=== PATIENT | female | born 1955 | race Two or more races ===

== ENCOUNTER 2024-03-19 08:30 | Outpatient (AMB) | payer OTHER, SELFPAY ==
--- NOTE | 2024-03-19 08:55 | HO.SPINEOV ---
Intake Visit Reasons: back pain Intake Note: Mrs. Calderón is here today c/o low back pain and Difficulty walking. Clinical Rehabilitation Coordinator Required: Yes Clinical Rehabilitation Coordinator Services: Clinical Rehabilitation Coordinator Present Assessment & Plan Assessment & Plan (1) Lumbar radiculopathy: Code(s): M54.16 - Radiculopathy, lumbar region Category: Medical Plan: This is a self-referred 68-year-old female who comes in today for evaluation of a left-sided low back pain that radiates down her left leg into her posterolateral thigh, posterolateral calf and into her foot. It started after a minor shoulder surgery that she had in 2018 or 2019. She did not have the pain right before the surgery but afterwards started to feel his pain down the leg. She was reassured that it would probably just go away maybe some kind of minor irritation of a nerve. Subsequent workups have not revealed any major findings. She was seen at [place] and reassured everything looked okay. She is very frustrated because she continues to have this pain daily, on and off throughout the day sitting, standing or lying down it is there. It feels like answer crawling on her leg, it is painful and uncomfortable. She has tried some [id number] pain medications which did not work very well. She is very reluctant to try medications. She did do physical therapy without any improvement. She is frustrated with her quality of life with this point. She has an MRI done at [facility] showing some mild changes in the lumbar spine on the report. She comes in today see us as we know her from our practice any thought she should have a 2nd opinion from us. PMH: High cholesterol, hypertension, headaches, lateral epicondylitis, sacroiliitis, osteoarthritis of the left hip Social hx: She does not smoke, drink use any recreational drugs Medications: Dulcolax, Zestril, Flexeril, Tylenol Allergies: Dogs, ragweed and seasonal allergies Physical exam: She is awake alert oriented no acute distress, she has positive straight leg raise on exam at about 30-40 degrees. GERONIMO testing is negative. She does have positive finger Katiuska test. Strength in reflexes in the lower extremities are normal. Imaging review: There is a lumbar MRI done at [facility] in July of 2023 showing what looks like normal alignment and good disc quality. There is some mild degeneration at T12-L1 but not causing any significant nerve compression. There is 1 thing that I see on the axial imaging at the L5-S1 level there appears to be a far lateral disc bulge/herniation which does abut the L5 nerve. He has not reported it on the sagittal sequences. It is not clear to me if the nerve is actually compressed orifice just running over a large osteophyte. Impression: 68-year-old female presents for evaluation of left L5 radiculopathy which started after shoulder surgery. It has been troubling her now for 4 or 5 years. It is there all the time, she has to get up change positions, constantly moving around, having a lot of trouble sleeping. She describes it as ants crawling on her legs, it is burning and very uncomfortable. She is frustrated that no one ever been able to give her an answer. She was seen at [place] by the neurosurgery team there and reassured that did not look like anything surgical. The only thing I can appreciate which was not mentioned on the report is at L5-S1 on the left in the far lateral component of the disc there does appear to be what could be a disc herniation or just a very large osteophyte disc complex which does run close to the L5 nerve after it exits the foramen. I am thinking she might respond to a left L5 TFESI not only as a diagnostic test but also to treat it symptomatically. I will refer her to Dr. Moulton for the injection and see her back once it is completed. I will review her imaging with Dr. Rasmussen as well to see if he has any other thoughts. Thank you for allowing us to care for your patient. The total time spent with this visit with this patient was 45 minutes reviewing history, physical exam, lumbar imaging review, and implementation of treatment plan or further diagnostic testing Fazal Rasmussen MD,PhD [facility] Orders: Referrals Physiatry Referral M54.16 - Radiculopathy, lumbar region Coding Level of Care Code New Pt Level 4 (45662) Diagnoses Lumbar radiculopathy M54.16
== END 2024-03-19 10:12 | disposition home or self-care (01) ==
PROVIDERS: PCP Internal Medicine; Visit Provider Physician Assistant
DX: M54.16 Radiculopathy, lumbar region (principal)
CPT/HCPCS: 99204

== ENCOUNTER → 2024-03-19 08:30 | Outpatient (BNVA) | payer OTHER, SELFPAY | PROVIDERS: PCP Internal Medicine; Visit Provider Physician Assistant | DX: M54.16 Radiculopathy, lumbar region (principal) | CPT/HCPCS: 99202 ==

== ENCOUNTER 2025-04-04 10:41 | Outpatient (AMB) | payer OTHER, SELFPAY ==
--- NOTE | 2025-04-04 10:43 | A.PHYSOV_ITS ---
Vital Signs 04/04/25 10:49 04/04/25 10:52 Height 4 ft 11 in 4 ft 11 in Weight 132 lb BMI 26.7 Intake Visit Reasons: 2M FUV Intake Note: Patient is a 69 year old female here for 2 month follow up. Geotechnicial Properties Technician Required: No Geotechnicial Properties Technician Services: Geotechnicial Properties Technician Offered & Declined Allergies dog dander (dogs) Allergy (Unknown, Verified 04/04/25 10:46) Unknown HPI Comments Details: Ms. Calderón is a 69-year-old female seen in evaluation today for lumbar radiculitis as well as sacroiliitis. Patient was referred to our department from Neurosurgery as we were considering left SI joint injection. She reports pain level today of 7/10 on the left side low back radiating into her left buttock and thigh. She also notes some fasciculations particularly at night. She underwent left L5 TFESI in May with no significant relief. Patient has been using tramadol lidocaine patches and Biofreeze. Patient has trialed gabapentin in the past but she would like to try it again. Patient was given oxycodone for breakthrough pain which has been helpful but made her slightly groggy. [facility] Surgical History H/O shoulder surgery (Unknown) H/O: hysterectomy (Unknown) History of cholecystectomy (Unknown) Social History Alcohol intake: current Alcohol intake frequency: does not drink Patient Tobacco Use Status: Never used Tobacco Current occupational status: retired Review of Systems Narrative Low back pain with radiculopathy. No incontinence, saddle anesthesia urinary retention. Physical Exam Exam Exam: Lumbar Spine: Examination of her lumbar spine, there is no visible swelling or deformity. She is tender to the left lower lumbar facets. She has full range of motion of her spine. She does have an increase in pain with facet loading. Special Tests: Lhermittes sign was negative Heel Toe walk is normal Left straight leg raise: Negative Right straight leg raise: Negative Special tests Demetra test is negative Ganslen's test is negative SI Joint compression test negative Randy test negative Piriformis stretch is negative Lower Extremities: Full range of motion bilateral lower extremities. No calf pain or edema. Neuro: Sensation: Intact to lower extremities bilaterally Strength L2 (Psoas): 5/5 on the left and 5/5 on the right. L3 (Quads): 5/5 on the left and 5/5 on the right. L4 (Ant tibialis): 5/5 on the left and 5/5 on the right. L5 (EHL) 5/5 on the left and 5/5 on the right. S1 (Gastroc): 5/5 on the left and 5/5 on the right. DTR L4: (Patellar) Left 1 Right 1 S1: (Achilles) Left 1 Right 1 Babinski Downgoing No pathologic clonus. No involuntary movement. Vital Signs: BMI result Body Mass Index 26.7 Assessment & Plan Assessment & Plan (1) Lumbar radiculopathy: Code(s): M54.16 - Radiculopathy, lumbar region Category: Medical (2) Spondylosis: Code(s): M47.9 - Spondylosis, unspecified Category: Medical Plan Ms. Calderón is a 69-year-old female seen in evaluation today for chronic low back pain with radiculopathy. She is experiencing fasciculations. Patient did not respond to epidural injection and she is not a surgical candidate. We are managing her pain with occasional oxycodone for breakthrough severe pain. She finds this medication helpful. I will prescribe the medication today. She will use the medication sparingly. She will not operate any heavy machinery while taking the medication. I did reviewed her mass pat and there are no red flags. I will prescribe gabapentin 100 mg at night. She may increase to 300 mg at 9/10 days as tolerated. She will contact our office for refill. Recommend follow-up in 2 months. We discussed the benefits of proper nutrition and exercise to maintain a healthy body weight to improve longevity and function. We also discussed the benefits of proper lifting techniques, core strengthening and proper posture. Thank you for allowing me to participate in the care of your patient. Medications: New oxycodone Partial Fill upon patient request. 5 mg PO Q6H PRN 28 caps 0RF pain M47.9 - Spondylosis, unspecified, M54.16 - Radiculopathy, lumbar region gabapentin 100 mg PO BEDTIME 30 caps 0RF M47.9 - Spondylosis, unspecified, M54.16 - Radiculopathy, lumbar region Coding Level of Care Code Tele Est Pt Level 4 ([id number]) Diagnoses Lumbar radiculopathy M54.16 Spondylosis M47.9
[2025-04-04 10:52] VITALS: BMI 26.7
--- OUTSIDE RECORDS SUMMARY | 2025-04-04 16:01 | XMS_ITS | Clinical Summary ---
Author Organization [facility] [address] [facility] Address [address] [place] [address] Phone Care Team Providers Care Director Housekeeping Name Role Phone Bryant Arenas MD Primary Care Provider [phone] Allergies No known active allergies Medications acetaminophen (TYLENOL 8 HOUR) 650 mg 8 hr tablet Take 1 tablet (650 mg total) by mouth every 8 (eight) hours if needed. 4 Active traMADoL (ULTRAM) 50 mg tabletIndication s:Chronic left-sided low back pain, unspecified whether sciatica present Take 1 tablet (50 mg total) by mouth every 6 (six) hours if needed for moderate pain. Max Daily Amount: 200 mg 30 tablet 5 Active lisinopriL (PRINIVIL,ZESTRI L) 5 mg tablet TAKE 1 TABLET BY MOUTH 1 TIME EACH DAY. 90 tablet 1 5 Active oxyCODONE (ROXICODONE) 5 mg immediate release tablet Take 1 tablet (5 mg total) by mouth if needed. 5 Active aspirin 81 mg EC tablet Take 1 tablet (81 mg total) by mouth 1 (one) time each day. 90 tablet 1 5 Active aspirin 81 mg EC tablet Take 1 tablet (81 mg total) by mouth. 6 03/29/20 25 Discontinu ed(Reorder ) Active Problems Problem Noted Date Diagnosed Date Chronic left-sided low back pain 02/10/2024 Overview (03/31/2024): Last Assessment & Plan: Patient describes left paraspinous lumbar back pain, left buttock pain that started a few days after having left shoulder surgery about 4 to 5 years ago. She states she cannot sit down too long, cannot sleep lying down, has to keep moving and walking around throughout the day. She feels tingling in both legs, states involves whole leg anterior and posterior, at times feels a heat sensation in the legs. She tried going to physical therapy years ago, but the back pain was too severe and she could not tolerate it. She is also tried seeing a chiropractor. She states in the past there was mention of hip replacement surgery, but never had follow-up. She tried gabapentin in the past, stopped it because she felt she was on too many medications and did not actually know what her problem was and did not want to take it without knowing a diagnosis. When she sits in the car she has to sit sideways . She does not specifically describe groin pain. When I looked through her records, there is a procedure note of her having a left SI joint injection 07/27/2021 at [facility], however she denies ever having any injections. Patient had x-rays lumbar spine 05/04/2023 that showed mild diffuse degenerative changes including multilevel osteophytes, some interval progression compared to prior films from 2019. She had lumbar spine MRI 08/12/2023 [facility] that showed T12-L1 central disc herniation without stenosis, otherwise lumbar spine MRI with minimal degenerative disc changes, no significant central or foraminal stenosis. I reviewed the MRI images in detail with the patient and her on the computer. Dr. Venegas reviewed images today as well. Ms. Calderón has severe chronic left lateral low back pain, sensitive to touch, left buttock pain radiating down the left lateral leg. She describes sensation of heat and tingling in the legs bilaterally also has tenderness over the left SI joint region. She does not have any findings on her lumbar MRI that would require surgical intervention. We talked about conservative treatment options, she does not want to try physical therapy again, we talked about trying aquatic PT in the pool to eliminate gravity with exercise, acupuncture, injections (possible SI joint injection). She is not interested in injections, but would try acupuncture, names provided. I ordered hip x-rays, she may need to follow-up with orthopedics. We talked about trying gabapentin again for the tingling in her legs, she will consider it. All questions answered. We used [facility] [employer] interpreters Marlon #[id number], Brad #[id number]. Assessment & Plan (01/08/2025 11:36 PM EDT): Pt was seen last year for left paraspinous lumbar back pain, left buttock pain that started a few days after having left shoulder surgery about 5 years ago. She had difficulty sitting too long, could not sleep lying down, had to keep moving and walking around throughout the day. Today she states her symptoms have not changed or improved at all since she was in last year. Since then she says she has tried acupuntcture, chirotx, had left L5 TFE 05/2024, none of which has helped her pain. She is taking Tramadol, Lidocaine patches, Biofreeze. Gabapentin did not help. She notes it is hard to bend over, can only sit about 5 min, has to sit leaning to the right, and tolerates minimal walking. She rates her back pain 8 or greater/10, Left posterior leg pain to outer/under foot 7-8/10. She has seen [facility], they did not recommend surgery. Her prior MRI L/S 08/15/23 [facility] showed minimal degenerative disc changes, no significant central or foraminal stenosis. We reviewed it again on this visit on the computer. She had L/S X-rays 06/11/24 that showed possible DISH, Diffuse lateral bridging osteophytes noted. Ms. Calderón has persistent LBP and left leg pain, it is severe and limiting her activities and sleep. We can get updated MRI L/S and see if there are any new findings like Modic changes/DDD or nerve root compression. She has not tried NSAIDS, no history of stomach ulcers, or kidney disease, I gave her rx to try Ibuprofen, take with food. All questions answered, she will call for any concerns or questions. Her acted as [employer] interpretor, they were offered [facility] interpretor but refused. Assessment & Plan (06/26/2024 10:16 AM EST): No GI workup indicated Defer back to PCP Vitamin D deficiency 09/23/2021 Lumbar radiculopathy 07/02/2021 Osteoarthritis of left hip 07/02/2021 Sacroiliitis ([facility] V24) 07/02/2021 Overview (03/31/2024): Follows with pain management. Lateral epicondylitis of right elbow 01/14/2020 Contusion of right elbow 12/03/2019 Headache 01/17/2014 HTN (hypertension) 08/19/2011 Hyperlipidemia 08/19/2011 Overview (03/31/2024): Diet controlled Assessment & Plan (05/23/2024 12:43 PM EST): Orders: Basic metabolic panel; Future Lipid panel with reflex to direct LDL; Future Encounters Date Type Department Care Team Description 03/29/2025 3:20 PM EST Lab Draw Station [address] Pure hypercholesterolemia ; Primary hypertension; Hypertension, unspecified type; Encounter for long-term (current) use of medications 03/29/2025 2:30 PM EST Office Visit Adult Medicine [address] [phone] Bryant Arenas MD Primary hypertension (Primary Dx); Pure hypercholesterolemia ; Chest pain, unspecified type 02/15/2025 11:30 AM EDT Office Visit Orthopedic Surgery [facility] [address] [facility] [address] [place] [phone] Meghan Harris MD Buttock pain (Primary Dx) 01/18/2025 Telephone Neurosurgery [facility] 175 [facility] [address] [place] [phone] Mar Yancey PA 01/17/2025 11:23 AM EDT - 01/17/2025 11:59 PM EDT Hospital Encounter [facility] MRI [address] [place] [phone] Chronic left-sided low back pain, unspecified whether sciatica present Discharge Disposition: Home or Self Care 01/09/2025 Telephone Neurosurgery [facility] [address] [phone] Susana Minor [place] 01/08/2025 10:00 AM EDT Office Visit Neurosurgery [place] [address] [place] [address] Mar Yancey PA Chronic left-sided low back pain, unspecified whether sciatica present from Last 3 Months Immunizations Immunization Administration Dates Next Due Tdap Tetanus diptheria acell ular pertussis (Boostrix; Adacel) 7yo and older 02/04/2012 Surgical History Surgery Date Site/Laterality Comments SHOULDER SURGERY 5 yeasrs PARTIAL HYSTERECTOMY SUPRACERVICAL ABDL HYSTER W/WO RMVL TUBE OVARY CHOLECYSTECTOMY COLONOSCOPY 2005 [facility], Negative COLONOSCOPY 2010 [facility]; negative COLONOSCOPY 2015 [facility]; negative Medical History Medical History Date Comments HTN (hypertension) 08/19/2011 Hyperlipidemia 08/19/2011 Family History Medical History Relation Name Comments Breast cancer Aunt p ?age paternal aunt; unilateral Diabetes Brother 1 Diabetes Brother 2 Hypertension Brother 3 Stroke Brother 4 Other: ear cancer Brother 5 Colon cancer Other 1 paternal first cousin- Colon cancer Other 2 paternal first cousin- Colon cancer Other 3 paternal first cousin- Prostate cancer Uncle paternal unc le Relation Name Status Comments Aunt p ?age Brother 1 Brother 2 Brother 3 Brother 4 Brother 5 Father's side aunt Alive Other 1 Other 2 Other 3 Uncle Social History Tobacco Use Types Packs/Day Years Used Date Smoking Tobacco: Never Smokeless Tobacco: Never Tobacco Cessation:Counseling Given: Not Answered Alcohol Use Standard Drinks/Week Comments No 0 (1 standard drink = 0.6 oz pur e alcohol) Comments No Sex and Gender Information Value Date Recorded Sex Assigned at Not on file Legal Sex Female 1:55 PM EST Gender Identity Not on file Sexual Orientation Not on file Obstetrics History Para Term AB IAB SAB Ectopic Multiple Livin g Live Births 2 2 2 2 Date Outcome GA Total Labor Labor/2nd/3rd Weight Sex Type Anes PTL Amelia A1 A5 Name Clin Term Term Last Filed Vital Signs Vital Sign Reading Time Taken Comments Blood Pressure 120/72 03/29/2025 2:24 PM EST Pulse 76 03/29/2025 2:24 PM EST Temperature 36.3 C (97.4 F) 03/29/2025 2:24 PM EST Respiratory Rate 16 03/29/2025 2:24 PM EST Oxygen Saturation 97% 03/29/2025 2:24 PM EST Inhaled Oxygen Concentration - - Weight 61.5 kg (135 lb 9.6 oz) 03/29/2025 2:24 P M EST Height 149.9 cm (4' 11 ) 03/29/2025 2:24 PM EST Body Mass Index 27.39 03/29/2025 2:24 PM EST Plan of Treatment Upcoming Encounters Date Type Department Care Team (Late st Contact Info) Description 07/29/2025 11:00 AM EDT Office Visit [place] [address], [place] [phone] Mary Grace Lara NP [address] [place], [place] 11/14/2025 10:00 AM EDT Appointment Radiology Department - [address] [phone] Health Maintenance Due Date Last Done Comments Pneumococcal Vaccine: 50+ Years (1 of 1 - PCV) 2004 Zoster Vaccines (1 of 2) 2004 DTaP,Tdap,and Td Vaccines (2 - Td or Tdap) 02/03/2022 02/04/2012 Medicare Annual Wellness Visit 04/22/2022 Social Influencers of Health Screening 04/22/2022 Depression Screening 05/16/2024 COVID-19 Vaccine ( season) 2025 03/13/2022, 03/13/2021, 09/04/2020, Additional history exists Influenza Vaccine (#1) 2025 Falls Risk Assessment 05/23/2025 05/23/2024 Hypertension/CHF/CAD Annual BMP Blood Test 03/29/2026 03/29/2025, 05/28/2024, 05/04/2023 Breast Cancer Screening 11/13/2026 11/14/19 25, 11/02/2023, 11/02/2023, Additional history exists RSV Immunization Adult Patients (1 - 1-dose 75+ series) 2029 Cholesterol Screening (Lipid Panel) 03/29/2030 03/29/2025, 05/28/2024, 09/06/2023 Osteoporosis Screening (Bone Density Screening) 08/08/2031 08/07/2021 Colorectal Cancer Screening: Colonoscopy 02/07/2034 02/08/2024 Hepatitis C Screening Completed 12/20/2018 HIB Vaccines Aged Out No longer eligi ble based on patient's age to complete this topic HPV Vaccines Aged Out No longer eligi ble based on patient's age to complete this topic Hepatitis A Vaccines Aged Out No long er eligible based on patient's age to complete this topic Hepatitis B Vaccines Aged Out No long er eligible based on patient's age to complete this topic IPV Vaccines Aged Out No longer eligi ble based on patient's age to complete this topic MMR Vaccines Aged Out No longer eligi ble based on patient's age to complete this topic Meningococcal ACWY Vaccine Aged Out N o longer eligible based on patient's age to complete this topic Meningococcal B Vaccine Aged Out No l onger eligible based on patient's age to complete this topic RSV Immunization Patients Under 20 months Aged Out No longer eligible based on patient's age to complete this topic Varicella Vaccines Aged Out No longer eligible based on patient's age to complete this topic Procedures Procedure Name Priority Date/Time Associated Diagnosis Comments ECG Routine 04/01/2025 2:14 PM EST COMPREHENSIVE METABOLIC PANEL Routine 03/29/2025 3:24 PM EST Hypertension, unspecified type Encounter for long-term (current) use of medications LIPID PANEL WITH REFLEX TO DIRECT LDL Routine 03/29/2025 3:24 PM EST Pure hypercholesterolemia MR LUMBAR SPINE WO CONTRAST Routine 01/17/2025 12:32 PM EDT Chronic left-sided low back pain, unspecified whether sciatica present MG MAMMO DIGITAL SCREENING W KONSTANTIN BILAT Routine 11/13/2024 9:00 AM EDT Encounter for screening mammogram for breast cancer [facility] COLONOSCOPY Routine 02/08/2024 DXA BONE DENSITY STUDY 1+ SITS AXIAL SKEL Routine 08/07/2021 9:38 AM EDT Encounter for screening for osteoporosis HEPATITIS C SCREENING Routine 12/20/2018 from Last 3 Months or Most Recently Relevant to Health Maintenance Results * ECG (04/01/2025 2:14 PM EST) us Bryant Arenas MD ECG ORDERABLES Final Result * (ABNORMAL) Lipid panel with reflex to direct LDL (03/29/2025 3:24 PM EST) Cholesterol 205(H) 0 - 200 mg/dL LAB CHEMISTRY METHOD 03/29/2025 7:24 PM EST [facility] Triglycerides 255(H) 0 - 150 mg/dL LAB CHEMISTRY METHOD 03/29/2025 7:24 PM EST [facility] HDL 56 >=40 mg/dL LAB CHEMISTRY METHOD 03/29/2025 7:24 PM EST [facility] LDL Calculated 98 0 - 100 mg/dL LAB CHEMISTRY METHOD 03/29/2025 7:24 PM EST [facility] Comment:Estimated LDL Calcul ated using equation: Total cholesterol - HDL cholesterol - (Triglycerides/5) VLDL Cholesterol Aureliano 51 mg/dL LAB CHEMISTRY METHOD 03/29/2025 7:24 PM EST [facility] Non HDL Chol. (LDL+VLDL) 149(H) <145 mg/dL LAB CHEMISTRY METHOD 03/29/2025 7:24 PM EST [facility] Chol/HDL Ratio 3.7 0.0 - 4.4 LAB CHEMISTRY METHOD 03/29/2025 7:24 PM [facility] Blood Venous blood specimen / Unknown Venipuncture / Unknown 03/29/2025 3:24 PM EST 03/29/2025 3:24 PM EST us Bryant Arenas MD LAB BLOOD ORDERABLES Final Resu lt [facility] [address] [place] [address], [place] [phone] * (ABNORMAL) Comprehensive metabolic panel (03/29/2025 3:24 PM EST) Sodium 143 133 - 145 mmol/L LAB CHEMISTRY METHOD 03/29/2025 7:24 PM [facility] Potassium 3.9 3.5 - 5.5 mmol/L LAB CHEMISTRY METHOD 03/29/2025 7:24 PM [facility] Chloride 106 96 - 110 mmol/L LAB CHEMISTRY METHOD 03/29/2025 7:24 PM [facility] CO2 30 21 - 32 mmol/L LAB CHEMISTRY METHOD 03/29/2025 7:24 PM [facility] Anion Gap 7 3 - 11 LAB CHEMISTRY METHOD 03/29/2025 7:24 PM [facility] Glucose 102(H) 70 - 100 mg/dL LAB CHEMISTRY METHOD 03/29/2025 7:24 PM [facility] BUN 13 5 - 25 mg/dL LAB CHEMISTRY METHOD 03/29/2025 7:24 PM [facility] Creatinine 0.61 0.50 - 1.10 mg/dL LAB CHEMISTRY METHOD 03/29/2025 7:24 PM [facility] eGFR 96 >=60 mL/min/1. 73m2 LAB CHEMISTRY METHOD 03/29/2025 7:24 PM [facility] Comment:Calculation based on the Chronic Kidney Disease Epidemiology Collaboration (CKD-EPI) equation refit without adjustment for race. BUN/Creatinine Ratio 21.3 LAB CHEMISTRY METHOD 03/29/2025 7:24 PM [facility] Calcium 9.6 8.5 - 10.5 mg/dL LAB CHEMISTRY METHOD 03/29/2025 7:24 PM [facility] AST (SGOT) 14 10 - 42 unit/L LAB CHEMISTRY METHOD 03/29/2025 7:24 PM [facility] ALT (SGPT) 30 10 - 60 unit/L LAB CHEMISTRY METHOD 03/29/2025 7:24 PM EST [facility] Alkaline Phosphatase 86 42 - 121 unit/L LAB CHEMISTRY METHOD 03/29/2025 7:24 PM EST [facility] Total Protein 7.3 6.0 - 8.0 g/dL LAB CHEMISTRY METHOD 03/29/2025 7:24 PM EST [facility] Albumin 4.2 3.2 - 5.0 g/dL LAB CHEMISTRY METHOD 03/29/2025 7:24 PM [facility] Total Bilirubin 0.6 0.0 - 1.4 mg/dL LAB CHEMISTRY METHOD 03/29/2025 7:24 PM [facility] Blood Venous blood specimen / Unknown Venipuncture / Unknown 03/29/2025 3:24 PM EST 03/29/2025 3:24 PM EST us Bryant Arenas MD LAB BLOOD ORDERABLES Final Resu lt [facility] [address] [place] [address], * MR Lumbar Spine wo Contrast (01/17/2025 12:32 PM EDT) Anatomical Region Laterality Modality L-spine, Spine Magnetic Resonan ce 01/18/2025 3:10 AM EDT Impressions 01/18/2025 3:16 AM EDT 1. Central disc protrusion at T12-L1 seen on sagittal view with effacement of the ventral thecal sac, similar to prior. 2. Multilevel lumbar spondylosis, as above, similar to prior. -------- FINAL REPORT -------- Dictated By: Betty King Dictated Date: 01/18/2025 03:10 ET Assigned Physician: Betty King Reviewed and Electronically Signed By: Betty King Signed Date: 01/18/2025 03:16 ET Workstation ID: [id number] Transcribed By: Self Edit Transcribed Date: 01/18/2025 03:10 ET Narrative 01/18/2025 3:16 AM EDT INDICATION: Low back pain, > 6 wks left leg pain COMPARISON: July 2023 TECHNIQUE: Multiplanar, multisequence MRI was performed of the lumbar spine without IV contrast. FINDINGS: Study assumes 5 lumbar type vertebral bodies. Vertebral body heights and alignment are preserved. Conus terminates at T12. Bone marrow and cord signal is unremarkable. Small multilevel anterior marginal osteophytes. Specific findings are seen at the following levels: T12-L1:On sagittal view, central disc protrusion with mild effacement of the ventral thecal sac. No significant neural foraminal narrowing. These findings are similar to July 2023. L1-L2:No significant spinal canal stenosis or neural foraminal narrowing. Bilateral facet arthropathy. L2-L3:Mild disc bulge with ligamentum flavum infolding and facet arthropathy without significant spinal canal stenosis or neural foraminal narrowing. L3-L4:Disc bulge with ligamentum flavum infolding and facet arthropathy which effaces the ventral thecal sac without significant spinal canal stenosis. Mild bilateral neural foraminal narrowing, similar to prior. L4-L5:Mild disc bulge with ligamentum flavum infolding and facet arthropathy which effaces the ventral thecal sac without significant spinal canal stenosis. Mild left and moderate right neural foraminal narrowing; similar to prior. L5-S1:Disc bulge with facet arthropathy without significant spinal canal stenosis. Mild bilateral neural foraminal narrowing; similar to prior. Miscellaneous: Parapelvic cysts within the kidneys. Diverticulosis. Procedure Note Betty King MD - 01/18/2025 INDICATION: Low back pain, > 6 wks left leg pain COMPARISON: July 2023 TECHNIQUE: Multiplanar, multisequence MRI was performed of the lumbarspine without IV contrast. FINDINGS: Study assumes 5 lumbar type vertebral bodies. Vertebral body heights andalignment are preserved. Conus terminates at T12. Bone marrow and cordsignal is unremarkable. Small multilevel anterior marginal osteophytes.Specific findings are seen at the following levels: T12-L1:On sagittal view, central disc protrusion with mild effacement ofthe ventral thecal sac. No significant neural foraminal narrowing. Thesefindings are similar to July 2023. L1-L2:No significant spinal canal stenosis or neural foraminal narrowing.Bilateral facet arthropathy. L2-L3:Mild disc bulge with ligamentum flavum infolding and facetarthropathy without significant spinal canal stenosis or neural foraminalnarrowing. L3-L4:Disc bulge with ligamentum flavum infolding and facet arthropathywhich effaces the ventral thecal sac without significant spinal canalstenosis. Mild bilateral neural foraminal narrowing, similar to prior. L4-L5:Mild disc bulge with ligamentum flavum infolding and facetarthropathy which effaces the ventral thecal sac without significantspinal canal stenosis. Mild left and moderate right neural foraminalnarrowing; similar to prior. L5-S1:Disc bulge with facet arthropathy without significant spinal canalstenosis. Mild bilateral neural foraminal narrowing; similar to prior. Miscellaneous: Parapelvic cysts within the kidneys. Diverticulosis. IMPRESSION: 1. Central disc protrusion at T12-L1 seen on sagittal view witheffacement of the ventral thecal sac, similar to prior. 2. Multilevel lumbar spondylosis, as above, similar to prior. -------- FINAL REPORT -------- Dictated By: Betty King Dictated Date: 01/18/2025 03:10 ET Assigned Physician: Betty King Reviewed and Electronically Signed By: Betty Kign Signed Date: 01/18/2025 03:16 ET Workstation ID: [id number] Transcribed By: Self Edit Transcribed Date: 01/18/2025 03:10 ET Mar REYES IMG MRI PROCEDURES Final R esult * MG Mammo Digital Screening w Konstantin bilat (11/13/2024 9:00 AM EDT) Anatomical Region Laterality Modality Breast Bilateral Mammography 11/14/2024 4:07 PM EDT Impressions 11/14/2024 4:13 PM EDT Benign. BI-RADS CATEGORY: 2 - BENIGN RECOMMENDATION: Screening bilateral mammogram is recommended in 1 year. Mammo Location: [place] [facility], [address] [place] [address], [id number], . -------- FINAL REPORT -------- Dictated By: Corie Ackerman Dictated Date: 11/14/2024 16:07 ET Assigned Physician: Croie Ackerman Reviewed and Electronically Signed By: Corie Ackerman Signed Date: 11/14/2024 16:13 ET Workstation ID: [id number] Transcribed By: Self Edit Transcribed Date: 11/14/2024 16:07 ET Narrative 11/14/2024 4:13 PM EDT CLINICAL: 69 years old, Female, routine annual exam. COMPARISON: Mammograms dating back to 07/12/2020 with most recent of 11/02/2023. Left breast ultrasound 11/03/2021. TECHNIQUE: Bilateral MLO and CC views were obtained digitally with 3-D mammogram (digital breast tomosynthesis). Computer-aided detection was utilized in evaluation of this exam (CAD). FINDINGS: There is no evidence of suspicious mass or architectural distortion. Previously documented cyst in the outer left breast is again noted No worrisome calcifications are evident. There has been no significant change from prior exam(s). BREAST DENSITY: B - There are scattered areas of fibroglandular density. Procedure Note Corie Ackerman MD - 11/14/2024 CLINICAL: 69 years old, Female, routine annual exam. COMPARISON: Mammograms dating back to 07/12/2020 with most recent of11/02/2023. Left breast ultrasound 11/03/2021. TECHNIQUE: Bilateral MLO and CC views were obtained digitally with 3-Dmammogram (digital breast tomosynthesis). Computer-aided detection wasutilized in evaluation of this exam (CAD). FINDINGS: There is no evidence of suspicious mass or architectural distortion.Previously documented cyst in the outer left breast is again noted Noworrisome calcifications are evident. There has been no significantchange from prior exam(s). BREAST DENSITY: B - There are scattered areas of fibroglandular density. IMPRESSION: Benign. BI-RADS CATEGORY: 2 - BENIGN RECOMMENDATION: Screening bilateral mammogram is recommended in 1 year. Mammo Location: [place] [facility], [address], . -------- FINAL REPORT -------- Dictated By: Corie Ackerman Dictated Date: 11/14/2024 16:07 ET Assigned Physician: Corie Ackerman Reviewed and Electronically Signed By: Corie Ackerman Signed Date: 11/14/2024 16:13 ET Workstation ID: [id number] Transcribed By: Self Edit Transcribed Date: 11/14/2024 16:07 ET Bryant Arenas MD IMG BI PROCEDURES Final Result * Colonoscopy (02/08/2024) Colonoscopy NO INTERPRETATION , ABSTRACTED Anatomical Region Laterality Modality Other Historical Provider HEALTH MAINTENANCE Final Result * DXA BONE DENSITY STUDY 1+ SITS AXIAL SKEL (08/07/2021 9:38 AM EDT) Anatomical Region Laterality Modality Bone Densitometr y 05/29/2021 9:34 AM EST Narrative 08/07/2021 1:10 PM EDT BONE DENSITY (DEXA) Lumbar Spine T-score is 1.1. (SD relative to 20-29 y/o adult) Z-score is 3.0. (SD relative to age matched peers) This is considered normal by WHO criteria. Left Hip T-score is 0.1. Z-score is 1.4. This is considered normal by WHO criteria. IMPRESSION: This patient is considered to have normal bone density by WHO criteria. [place] [facility] Department of Internal Medicine recommends using National Osteoporosis Foundation (NOF) guidelines in treatment decisions related to osteoporosis. NOF guidelines suggest considering treatment for postmenopausal women and men aged 50 or older presenting with the following: History of hip or vertebral fracture. T-score = -2.5 (DXA) at the femoral neck, total hip, or spine, after appropriate evaluation to exclude secondary causes. Low bone mass (T-score between -1.0 and -2.5 at the femoral neck or spine) AND a 10-year probability of a hip fracture = 3% OR a 10-year probability of a major osteoporosis-related fracture = 20% based on the [place]-adapted WHO algorithm Please note that all treatment decisions require clinical judgment and consideration of individual patient factors, including patient preferences, co-morbidities, previous drug use, risk factors not captured in the FRAX model (e.g., frailty, falls, vitamin D deficiency, increased bone turnover, interval significant decline in bone density) and possible under- or over-estimation of fracture risk by FRAX. Optional alternative screening schedule based on phyllis Vallecillo., [facility] June 03, 2011 for patients with osteopenia (based on hip BMD T-score) is as follows: * advanced osteopenia (T scores -2.00 to -2.49), BMD testing every year * moderate osteopenia (T scores -1.50 to -1.99), BMD testing every 5 years mild osteopenia or normal BMD (T scores -1.50 and higher), BMD testing every 15 years Procedure Note Corie Ackerman MD - 05/04/2022 BONE DENSITY (DEXA) Lumbar Spine T-score is 1.1. (SD relative to 20-29 y/o adult) Z-score is 3.0. (SD relative to age matched peers) This is considered normal by WHO criteria. Left Hip T-score is 0.1. Z-score is 1.4. This is considered normal by WHO criteria. IMPRESSION: This patient is considered to have normal bone density by WHO criteria. [facility] Department of Internal Medicine recommendsusing National Osteoporosis Foundation (NOF) guidelines in treatment decisions related toosteoporosis. NOF guidelines suggest considering treatment for postmenopausal women and menaged 50 or older presenting with the following: History of hip or vertebral fracture. T-score = -2.5 (DXA) at the femoral neck, total hip, or spine, afterappropriate evaluation to exclude secondary causes. Low bone mass (T-score between -1.0 and -2.5 at the femoral neck or spine)AND a 10-year probability of a hip fracture = 3% OR a 10-year probability of a majorosteoporosis-related fracture = 20% based on the [place]-adapted WHO algorithm Please note that all treatment decisions require clinical judgment andconsideration of individual patient factors, including patient preferences, co- morbidities,previous drug use, risk factors not captured in the FRAX model (e.g., frailty, falls, vitaminD deficiency, increased bone turnover, interval significant decline in bone density) andpossible under- or over-estimation of fracture risk by FRAX. Optional alternative screening schedule based on phyllis Vallecillo., NEJMJanuary 2011 for patients with osteopenia (based on hip BMD T-score) is as follows: * advanced osteopenia (T scores -2.00 to -2.49), BMD testing every year * moderate osteopenia (T scores -1.50 to -1.99), BMD testing every 5years mild osteopenia or normal BMD (T scores -1.50 and higher), BMD testingevery 15 years Gracie REYES IMG DXA PROCEDURES Final Resu lt * Hepatitis C Screening (12/20/2018) [facility] Hepatitis C Screening ABSTRACTED Historical Provider MD HEALTH MAINTENANCE Final Result from Last 3 Months or Most Recently Relevant to Health Maintenance Insurance [facility] [employer] Member Subscriber Plan / Payer (Ef fective 2019-Present) Name:Courtney Calderón Relation to Subscriber:Self Name:Courtney Calderón Payer ID:[id number] Group ID:[id number] Type:Not on file Address: [address] [id number] Care Teams Director Housekeeping Relationship Specialty Start Date End Date Bryant Arenas MD [address] [place] [phone] PCP - General Internal Medicine 12/28/24
--- OUTSIDE RECORDS SUMMARY | 2025-04-04 16:02 | XMS_ITS ---
Author Name [facility] Organization Unknown Encounters Encounter Type Encounter Reason Primary Diagnosis Location Date Ambulatory [facility] 02/24/2024 Care Team Organization Name Specialty Phone Email Start Date End Da te [facility] 2024
--- OUTSIDE RECORDS SUMMARY | 2025-04-04 16:02 | XMS_ITS | Clinical Summary ---
Author Organization [facility] [employer] Address [address] [id number] Care Team Providers Care Training Program Assistant Name Role Phone Bryant Arenas MD Primary Care Provider [phone] Allergies No known active allergies Medications Medication Sig Dispensed Refills Start Date End Date Status lisinopril (PRINIVIL,ZESTRIL) tablet 5 mg 0 05/06/2019 Active methocarbamol (ROBAXIN-750) 750 MG tablet Take 750 mg by mouth. 0 11/22/2019 Active naproxen (NAPROSYN) 500 MG tablet Take 500 mg by mouth. 0 11/22/2019 Active triamcinolone acetonide (KENALOG) 40 MG/ML injection Inject 40 mg into the articular space. 0 01/14/2020 Active meloxicam (MOBIC) 7.5 MG tablet Take 1 tablet (7.5 mg total) by mouth 2 (two) times a day as needed for pain. 60 tablet 0 07/01/2021 Active Active Problems Problem Noted Date Diagnosed Date Headache 01/17/2014 HTN (hypertension) 08/19/2011 Hyperlipidemia 08/19/2011 Overview: Overview: Diet controlled Social History Tobacco Use Types Packs/Day Years Used Date Smoking Tobacco: Never Smokeless Tobacco: Never Alcohol Use Standard Drinks/Week Comments No 0 (1 standard drink = 0.6 oz pur e alcohol) Sex and Gender Information Value Date Recorded Sex Assigned at Not on file Gender Identity Not on file Sexual Orientation Not on file Job Start Date Occupation Industry Not on file Not on file Not on file Last Filed Vital Signs Vital Sign Reading Time Taken Comments Blood Pressure 148/91 07/01/2021 10:44 AM EST Pulse 87 07/01/2021 10:44 AM EST Temperature 36.1 C (97 F) 07/01/2021 10:44 AM EST Respiratory Rate - - Oxygen Saturation 99% 07/01/2021 10:44 AM EST Inhaled Oxygen Concentration - - Weight 62.1 kg (137 lb) 10/15/2019 10:05 AM EDT Height 149.9 cm (4' 11 ) 10/15/2019 10:05 AM EDT Body Mass Index 27.67 10/15/2019 10:05 AM EDT Plan of Treatment Health Maintenance Due Date Last Done Comments Hepatitis C Screening 1954 Depression Screening 1966 BMI Counseling 1972 Preventative Health Evaluation 1972 Colon Cancer Screening (Colonoscopy) 09/29/1999 Breast Cancer Screening (Mammogram) 2004 Shingrix-Zoster Vaccine (1 o f 2) 2004 Fall Risk Assessment 09/29/2019 Osteoporosis Screening (DEXA Scan) 09/29/2019 Pneumococcal Vaccine (1 of 1 - PCV) 09/29/2019 DTap / Tdap / Td (2 - Td or Tdap) 02/03/2022 02/04/2012 COVID-19 Vaccine (3 - 2024-2 6 season) 2025 09/04/2020, 08/07/2020 Influenza Vaccine (#1) 2025 RSV Adult > 60+ Yrs or (1 - 1-dose 75+ series) 2029 Hepatitis B Vaccines Aged Out No long er eligible based on patient's age to complete this topic RSV Ped < 20 months Aged Out No longe r eligible based on patient's age to complete this topic Care Teams Training Program Assistant Relationship Specialty Start Date End Date Bryant Arenas MD PCP - General Internal Medicine 04/05/19
== END 2025-04-04 11:17 | disposition home or self-care (01) ==
PROVIDERS: PCP Internal Medicine; Visit Provider Physician Assistant
DX: M54.16 Radiculopathy, lumbar region (principal); M47.9 Spondylosis, unspecified
CPT/HCPCS: 99214

== ENCOUNTER → 2025-04-04 10:41 | Outpatient (BNVA) | payer OTHER, SELFPAY | PROVIDERS: PCP Internal Medicine; Visit Provider Physician Assistant | DX: M54.16 Radiculopathy, lumbar region (principal); M47.9 Spondylosis, unspecified | CPT/HCPCS: 99212 ==